=== PATIENT | male | born 1960 | race Two or more races ===

== ENCOUNTER 2016-05-17 12:01 | Emergency (ER) | payer OTHER ==
[2016-05-17 12:34] VITALS: PULSE 84
[2016-05-17] MEDS ORDERED: IBUPROFEN 600 MG TAB PO ONE (14:40)
[2016-05-17] MEDS ORDERED: CYCLOBENZAPRINE 10 MG TAB PO ONE (14:43)
--- NOTE | 2016-05-17 15:29 | EDPHY ---
H & P Stated Complaint: slipped on ice. back,r elbow and r knee pain HPI/ROS: CHIEF COMPLAINT: Fall, knee pain, back pain HISTORY OF PRESENT ILLNESS: fall on the ice earlier today, landing on his right side. Denies striking his head or loss of consciousness. Now complains of severe low back and right knee pain. Worse with palpation or movement. Does not radiate. No numbness or tingling of the extremities. No saddle anesthesia. No incontinence of bowel or bladder. No weakness of the lower extremities. History of low back pain status post decompression with hardware in place. He has no headache or neck pain. No chest or upper back pain. No injuries to the left arm or leg. The right knee pain is significant enough to be painful at rest and worse with ambulation. No complaint distal to the knee pain. No other associated complaints or modifying factors past PRIOR ORTHO INJURIES: low back ESTABLISHED ORTHOPEDIST: does not recall REVIEW OF SYSTEMS: Ten systems reviewed and are negative unless otherwise noted in the HPI EXAMINATION General Appearance: Alert, no distress Head: normocephalic, atraumatic Eyes: Pupils equal and round, no conjunctival pallor or injection ENT, Mouth: Mucous membranes moist Neck: Normal inspection Respiratory: No dyspnea or retractions. No distress Cardiovascular: Pulses normal throughout with symmetric radial, DP and PT at 2 +. Brisk cap refill Gastrointestinal: No distention. No tenderness, tympany or rigidity. Back: Well-healed surgical lumbar scar. There is tenderness to palpation of the lumbar spine. No crepitus, step-off or deformity. No tenderness of the cervical or thoracic spine. Neurological: A&O, sensory symmetric, strength symmetric Skin: Warm and dry, no rash Extremities: Right lower extremity: Tenderness to palpation about the knee across the joint line. Range of motion is intact but tender. No effusion. No ecchymosis or abrasion. No laxity. Negative drawer tests DIFFERENTIAL DIAGNOSES: Including but not limited to Fracture, sprain, strain, dislocation, contusion , hematoma MDM: mechanical fall with low back and right knee pain. Back does not have any outward sign of trauma but is tender palpation. Knee is minimally swollen with tenderness to palpation about it. No signs of effusion. No lacerations abrasions at any site. X-rays of the back and knee are pending at this time. No evidence of acute cord injury or cauda equina by history and examination 4:16 p.m. back pain with no abnormal findings on x-ray or examination. No evidence of acute cord compression or cauda equina. He is ambulatory and neuro intact. I did discuss his previous pain medications, he says they are all from a painter interior finish. Thus I will not provide any prescriptions as he already has muscle relaxants at home. We discharged home stable condition to follow up with primary care physician, existing back specialist, and painter interior finish return to the ER for worsening pain, saddle anesthesia, incontinence of bowel or bladder, motor changes distally. patient is comfortable with this plan and discharged home in stable condition ED Precautions: Worsening pain. Erythema, edema, cyanosis, pallor, paresthesia or anesthesia. SUPERVISION: This patient was independently evaluated without the aide of supervising physician. Source: Patient Exam Limitations: No limitations - Personal History Current Tetanus/Diphtheria Vaccine: Unsure Current Tetanus Diphtheria and Acellular Pertussis (TDAP): Unsure - Medical/Surgical History Hx Asthma: No Hx Chronic Respiratory Disease: No Hx Diabetes: No Hx Cardiac Disease: No Hx Renal Disease: No Hx Cirrhosis: No Hx Alcoholism: No Hx HIV/AIDS: No Hx Splenectomy or Spleen Trauma: No Other PMH: 2 back surgery, 1 knee surgery - Social History Smoking Status: Never smoked Constitutional: Initial Vital Signs Temperature (C) 98.6 F 05/17/16 12:31 Heart Rate 84 05/17/16 12:31 Respiratory Rate 18 05/17/16 12:31 Blood Pressure 119/75 05/17/16 12:31 O2 Sat (%) 93 05/17/16 12:31 O2 Delivery Mode Room Air Allergies/Adverse Reactions: aspirin Allergy (Verified 05/17/16 12:35) Penicillins Allergy (Verified 05/17/16 12:35) Home Medications: Medication Instructions Recorded Muscle Relaxer 05/17/16 SIMVASTATIN 10 mg PO 05/17/16 Medical Decision Making - Data Points Medications Given: Discontinued Medications Cyclobenzaprine HCl (Flexeril) 10 mg PO EDNOW ONE Stop: 05/17/16 14:44 Last Admin: 05/17/16 15:21 Dose: 10 mg Ibuprofen (Motrin) 600 mg PO EDNOW ONE Stop: 05/17/16 14:41 Last Admin: 05/17/16 15:21 Dose: 600 mg Departure - Departure Disposition: Home, Routine, Self-Care Clinical Impression: Acute pain of right knee Acute lumbar back pain Qualifiers: Qualifier Code: (M54.5) Low back pain Fall Qualifiers: Qualifier Code: (W19.XXXA) Unspecified fall, initial encounter Condition: Good Instructions: Low Back Strain (ED), Fall Prevention (ED) Referrals: [place],. [Primary Care Provider] - As per Instructions Alfonso Ross MD [Medical Doctor] - As per Instructions Priscilla Munoz MD [Medical Doctor] - As per Instructions
--- NOTE | 2016-05-17 15:35 | DX ---
Right Knee, Four Views 1437 p.m. Indication: Fall. Pain.. Technique: AP, oblique, lateral, and Merchant views. Findings: The normally mineralized bones are anatomically aligned except for minimal genu valgum conf iguration due to marked narrowing of the lateral tibiofemoral joint space. No acute fracture. The lat eral tibiofemoral joint space is completely lost with bone articulating with bone and exuberant osteo phytes emanate off the lateral joint line. The medial compartment is relatively well preserved. The p atella is normal position with small marginal osteophytes along the medial and lateral facet of the p atella. Moderate effusion. Impression: 1. No acute fracture. 2. 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
--- NOTE | 2016-05-17 15:58 | DX ---
Lumbar Spine, Two Views 14:34 Hours Indication: Fall. Pain. Comparison: None Technique: Upright AP and lateral views. Findings: Five nonrib-bearing lumbar vertebral bodies have minimal dextrocurvature apex at L3. No ac [place] compression fracture. A posterior fusion construct extending from L4 to S1 is well seated with no perihardware fracture lucency. The construct consists of dual posterior rods and bilateral transpedi cular screws in L4, L5, and S1. Interbody bone graft and radiopaque markers are well seated in the L4 -L5 and L5-S1 interbody spaces. Mild degenerative disease present L3-L4. Alignment is normal. Impression: 1. No acute fracture. 2. Well-seated posterior fusion construct extending from L4 to S1.
[2016-05-17 16:36] VITALS: BP 124/86; RESP 16; TEMP 98.4; O2SAT 95
== END 2016-05-17 16:34 | disposition home or self-care (01) ==
DX: S39.92XA Unspecified injury of lower back, initial encounter (principal); S89.91XA Unspecified injury of right lower leg, initial encounter; W00.0XXA Fall on same level due to ice and snow, initial encounter